=== PATIENT | female | born 1970 | race Caucasian/White ===

== ENCOUNTER 2017-05-23 16:48 | Emergency (ER) | payer BC ==
--- NOTE | 2017-05-23 17:37 | PDOC ---
History of Present Illness <Margot Hope - Last Filed: 05/23/17 19:07> - History of Present Illness Initial Comments: 05/23/17 17:46 This patient is a 46 year old female with a history of hypothyroidism and cholelithiasis, who presents to the ER with complaint of headache s/p syncopal episode at work two nights ago 05/21/17. She states she was in a verbal disagreement with a coworker when she became overwhelmed and short of breath. She states she can only remember falling to the floor. She states she hit her head on the floor. She reports feeling a pressure in her chest when she got up from the floor with assistance of coworkers. 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 She [place], the night of her syncopal episode, however, states she stayed home to rest. She states she had a similar experience in the past after a day without eating. She states she does not recall eating much on Wednesday. She states she only ate 3 spoons of soup today. She states that "the argument on Wednesday is now stuck in my head". Menopausal - LMP 2016. She denies headache and dizziness. She denies fever, chills, nausea, vomit, diarrhea and constipation. She denies dysuria, frequency, urgency and hematuria. Allergies: NKDA Social history: everyday tobacco smoker <Lashae Jaimes - Last Filed: 05/23/17 19:11> - General Chief Complaint: Syncope/Near Syncope Stated Complaint: PASSED OUT Time Seen by Provider: 05/23/17 17:31 Past History - Past Medical History Asthma: No Diabetes: No HTN: No Thyroid Disease: Yes - Psycho/Social/Smoking Cessation Hx Anxiety: No Suicidal Ideation: No Smoking Status: Yes Smoking History: Current every day smoker Have you smoked in the past 12 months: Yes Number of Cigarettes Smoked Daily: 20 Information on smoking cessation initiated: Yes 'Breaking Loose' booklet given: 05/23/17 Hx Alcohol Use: No Drug/Substance Use Hx: No Substance Use Type: None <Margot Hope - Last Filed: 05/23/17 19:07> <Lashae Jaimes - Last Filed: 05/23/17 19:11> - Past Medical History Allergies/Adverse Reactions: Allergies Allergy/AdvReac Type Severity Reaction Status Date / Time No Known Allergies Allergy Verified 05/23/17 16:50 Home Medications: Ambulatory Orders Levothyroxine [Synthroid -] 112 mcg PO DAILY 11/13/15 Review of Systems - Review of Systems Able to Perform ROS?: Yes Comments:: 05/23/17 17:48 CONSTITUTIONAL: (+) syncopal episode x 2 days ago. Absent: fever, chills, diaphoresis, generalized weakness, malaise, loss of appetite HEENT: Absent: rhinorrhea, nasal congestion, throat pain, throat swelling, difficulty swallowing, mouth swelling, ear pain, eye pain, visual Changes CARDIOVASCULAR: Absent: chest pain, syncope, palpitations, irregular heart rate, lightheadedness , peripheral edema RESPIRATORY: Absent: cough, shortness of breath, dyspnea with exertion, orthopnea, wheezing, stridor, hemoptysis GASTROINTESTINAL: Absent: abdominal pain, abdominal distension, nausea, vomiting, diarrhea, constipation, melena, hematochezia GENITOURINARY: Absent: dysuria, frequency, urgency, hesitancy, hematuria, flank pain, genital pain MUSCULOSKELETAL: Absent: myalgia, arthralgia, joint swelling SKIN: Absent: rash, itching, pallor HEMATOLOGIC/IMMUNOLOGIC: Absent: easy bleeding, easy bruising, lymphadenopathy, frequent infections ENDOCRINE: Absent: unexplained weight gain, unexplained weight loss, heat intolerance, cold intolerance NEUROLOGIC: (+) headache, Absent: focal weakness or paresthesias, dizziness, unsteady gait , seizure, mental status changes, bladder or bowel incontinence PSYCHIATRIC: Absent: anxiety, depression, suicidal or homicidal ideation, hallucinations. <Lashae Jaimes - Last Filed: 05/23/17 19:11> *Physical Exam - Vital Signs Last Vital Signs Temp Pulse Resp BP Pulse Ox 98.4 F 82 18 132/99 97 05/23/17 16:49 05/23/17 16:49 05/23/17 16:49 05/23/17 16:49 05/23/17 16:49 <Margot Hope - Last Filed: 05/23/17 19:07> - Vital Signs Last Vital Signs Temp Pulse Resp BP Pulse Ox 98.4 F 82 18 132/99 97 05/23/17 16:49 05/23/17 16:49 05/23/17 16:49 05/23/17 16:49 05/23/17 16:49 - Physical Exam Comments: 05/23/17 17:49 GENERAL: Well developed, well nourished. Awake and alert. No acute distress. HEENT: Normocephalic, atraumatic. PERRLA, EOMI. No conjunctival pallor. Sclera are non- icteric. Moist mucous membranes. Oropharynx is clear. NECK: Supple. Full ROM. No JVD. Carotid pulses 2+ and symmetric, without bruits. No thyromegaly. No lymphadenopathy. CARDIOVASCULAR: Regular rate and rhythm. No murmurs, rubs, or gallops. Distal pulses are 2+ and symmetric. PULMONARY: No evidence of respiratory distress. Lungs clear to auscultation bilaterally. No wheezing, rales or rhonchi. ABDOMINAL: Soft. Non-tender. Non-distended. No rebound or guarding. No organomegaly. Normoactive bowel sounds. MUSCULOSKELETAL Normal range of motion at all joints. No bony deformities or tenderness. No CVA tenderness. EXTREMITIES: No cyanosis. No clubbing. No edema. No calf tenderness. SKIN: Warm and dry. Normal capillary refill. No rashes. No jaundice. NEUROLOGICAL: Alert, awake, appropriate. Cranial nerves 2-12 intact. Normoreflexic in the upper and lower extremities. Normal speech. Toes are down-going bilaterally. Gait is normal without ataxia. PSYCHIATRIC: Cooperative. Good eye contact. Appropriate mood and affect. <Lashae Jaimes - Last Filed: 05/23/17 19:11> ED Treatment Course - LABORATORY CBC & Chemistry Diagram: 05/23/17 17:22 05/23/17 17:22 <Margot Hope - Last Filed: 05/23/17 19:07> - LABORATORY CBC & Chemistry Diagram: 05/23/17 17:22 05/23/17 17:22 - RADIOLOGY Radiograph Interpretation: EXAM: CT head without contrast IMAGES: 137 DATE OF SERVICE: 2017-05-23 18:24:14 REASON FOR EXAM: Syncopal episode FINDINGS: There is no evidence of acute infarction. There is no hemorrhage. No mass lesion is seen. There is no skull fracture. There is a likely old fracture of the medial wall of left orbit. Minimal mucosal thickening is noted in the left frontal sinus. Mastoid air cells are normally pneumatized. Terrell Patel MD 05/23/2017 18:55 EST <Lashae Jaimes - Last Filed: 05/23/17 19:11> *DC/Admit/Observation/Transfer - Discharge Dispostion Admit: No <Margot Hope - Last Filed: 05/23/17 19:07> - Attestations Scribe Attestion: 05/23/17 17:51 Documentation prepared by Lashae Jaimes, acting as medical record assistant for Margot Hope MD <Lashae Jaimes - Last Filed: 05/23/17 19:11> Diagnosis at time of Disposition: Vasovagal episode - Discharge Dispostion Disposition: HOME Condition at time of disposition: Stable - Referrals Referrals: Amadou Otoole MD [Staff Physician] - - Patient Instructions Printed Discharge Instructions: DI for Syncope in Adults (Fainting)
[2017-05-23 17:44] VITALS: TEMP 98.4; BMI 27.4
[2017-05-23 17:44] LABS: BASOPHIL 3.4 % (0-2.0); EOSINOPHIL 0.9 % (0-4.5); MCH 31.9 pg (25.7-33.7); MCHC 34.5 g/dl (32.0-36.0); MEAN CELL VOLUME 92.5 fl (80-96); MEAN PLT VOLUME 8.1 fl (7.5-11.1); NEUTROPHILS 58.8 % (42.8-82.8); PLATELET COUNT 302 K/MM3 (134-434); RDW 12.5 % (11.6-15.6); WHITE BLOOD COUNT 7.8 K/mm3 (4.0-10.8)
[2017-05-23 17:50] LABS: ALBUMIN 4.4 g/dl (3.5-5.0); ALK PHOS 52 U/L (32-92); ANION GAP 7 (8-16); BILIRUBIN,TOTAL 0.5 mg/dl (0.2-1.0); CALCIUM 9.5 mg/dl (8.4-10.2); CO2 27 mmol/L (22-28); CPK 129 IU/L (26-192); CREATININE 0.8 mg/dl (0.6-1.3); GLUCOSE,RANDOM 91 mg/dl (74-106); SGOT/AST 26 U/L (10-42); SGPT/ALT 19 U/L (10-40); TOT PROT 7.3 g/dl (6.4-8.3)
[2017-05-23] MEDS ORDERED: SODIUM CHLORIDE 0.9% 500 ML INFUS.BAG IV ONE (17:51)
[2017-05-23 18:01] LABS: TROPONIN I (DFP) < 0.03 ng/ml (0.03-0.50)
[2017-05-23 19:25] VITALS: BP 114/78; PULSE 67
--- NOTE | 2017-05-24 08:48 | EKG ---
Test Reason : Blood Pressure : / mmHG Vent. Rate : 064 BPM Atrial Rate : 064 BPM P-R Int : 140 ms QRS Dur : 084 ms QT Int : 414 ms P-R-T Axes : 065 019 043 degrees QTc Int : 427 ms SINUS RHYTHM LOW VOLTAGE QRS NO PREVIOUS ECGS AVAILABLE Confirmed by DELMIS PADILLA MD ([id number]) on 05/24/2017 8:48:16 AM Referred By: DESI Confirmed By:DELMIS PADILLA MD
== END 2017-05-23 19:26 | disposition home or self-care (01) ==
LOC: FER 16:48
PROC: 3E0337Z Introduction of Electrolytic and Water Balance Substance into Peripheral Vein, Percutaneous Approach (ICD-10-PCS; principal; 2017-05-23)
DX: R55 Syncope and collapse (principal); E03.9 Hypothyroidism, unspecified; F17.210 Nicotine dependence, cigarettes, uncomplicated
CPT/HCPCS: 36415; 70450-TC; 71020-TC; 80053; 84484; 85025; 93005; 99282-25